=== PATIENT | female | born 1945 | race Caucasian/White ===

== ENCOUNTER 2022-06-14 02:38 | Day surgery (SDC) | payer MEDICARE, SELFPAY ==
[2022-06-04 10:10] VITALS: BMI 25.8
--- NOTE | 2022-06-04 10:15 | PC.NURSE ---
Report to the Outpatient Waiting Room, entrance under the green pavilion located off [facility], at time 0730 on date 06/11/22. Planned Procedure Time: 0930. Time changes happen often and if your time is changed the preop area will call you the afternoon before. - You and your visitor will be asked to self-screen and do not enter if you have any COVID symptoms. - Only one visitor is requested with a max of two and NO children visitors are allowed at this time. - The patient visitor may be requested to leave or wait in car when not with patient due to distancing restrictions. - A mask is optional within the hospital. Patients may have clear liquids (water, carbonated beverages, clear teas, apple juice) until 3 hours prior to surgery with a maximum of 20 ounces. - No food from midnight until time of surgery Take the following medications with a SIP of water the morning of surgery: TYLENOL IF NEEDED Medications to discontinue per physician: VITAMINS Date to take last dose: 06/07/22 Please no make-up, nail german, hairspray, perfume, deodorant, or body powder the day of surgery. No jewelry (including any body piercings) or valuables the day of surgery, leave them at home. Please take a shower or bath the night before, or the morning of, surgery with an antibacterial soap. Wear comfortable, loose fitting clothing. - Jewelry must be removed prior to entering the operating room. Rings and piercings that are not removed may be cut off. - The hospital will not accept responsibility for valuables. - Please leave all valuables, including medications, at home the day of surgery. If you are going home after surgery, a licensed city route driver must drive you home. - NO public transportation without another adult if you receive anesthesia. - We recommend that an adult stay with you for 24 hours following discharge. - We also recommend that you do not drive, make important decision, drink alcoholic beverages, or take any drugs that were not prescribed by your health care provider for at least 24 hours after your discharge time. Follow any additional instructions given to you from your surgeon. If you or anyone in your household have experienced Covid symptoms in the past week, please notify your surgeon or the nurse liaison at the phone number below for possible testing. Telephone instructions given to PT - MICKY BARCENAS and asked if any additional questions and then verbalized understanding. Patient advised to call surgeon office or pre surgery nurse liaison [phone] if any additional questions.
--- NOTE | 2022-06-11 11:27 | PC.NURSE ---
Report to the Outpatient Waiting Room, entrance under the green pavilion located off [facility], at time _1215 on date __06/14/22 . Planned Procedure Time: _1415 . Time changes happen often and if your time is changed the preop area will call you the afternoon before. - You and your visitor will be asked to self-screen and do not enter if you have any COVID symptoms. - Only one visitor is requested with a max of two and NO children visitors are allowed at this time. - The patient visitor may be requested to leave or wait in car when not with patient due to distancing restrictions. - A mask is optional within the hospital at this time. Patients may have clear liquids (water, carbonated beverages, clear teas, apple juice) until 3 hours prior to surgery with a maximum of 20 ounces. - No food from midnight until time of surgery - Infants may have breast milk until 4 hours before surgery, infant formula 6 hours prior to surgery. - Children will be allowed to drink immediately following surgery. If applicable, please bring a bottle or sippy cup to assist with drinking. Juice, water, soda, and popsicles are readily available. For infants on formula, please bring formula the day of surgery. Pacifiers are allowed. Take the following medications with a SIP of water the morning of surgery: _TYLENOL IF NEEDED DO NOT STOP ANY OF YOUR OTHER PRESCRIPTION MEDICATIONS PRIOR TO SURGERY ?EXCEPT THE FOLLOWING Medications to discontinue per physician ___ALL VITAMINS AND SUPPLEMENTS 3 DAYS PRE OP Date to take last dose___PT STATES LAST DOSE WILL BE 06/07/22 Please no make-up, nail jordanian, hairspray, perfume, deodorant, or body powder the day of surgery. No jewelry (including any body piercings) or valuables the day of surgery, leave them at home. Please take a shower or bath the night before, or the morning of, surgery with an antibacterial soap. Wear comfortable, loose fitting clothing. Children are encouraged to wear pajamas. - Jewelry must be removed prior to entering the operating room. Rings and piercings that are not removed may be cut off. - The hospital will not accept responsibility for valuables. - Please leave all valuables, including medications, at home the day of surgery. If you are going home after surgery, a licensed regional intermodal truck driver must drive you home. - NO public transportation without another adult if you receive anesthesia. - We recommend that an adult stay with you for 24 hours following discharge. - We also recommend that you do not drive, make important decision, drink alcoholic beverages, or take any drugs that were not prescribed by your health care provider for at least 24 hours after your discharge time. For Pediatric surgeries, we recommend two adults accompany the child home. Follow any additional instructions given to you from your surgeon. If you or anyone in your household have experienced Covid symptoms in the past week, please notify your surgeon or the nurse liaison at the phone number below for possible testing. Telephone instructions given to __PATIENT and asked if any additional questions and then verbalized understanding. Patient advised to call surgeon office or pre surgery nurse liaison [phone] if any additional questions.
--- NOTE | 2022-06-11 11:29 | PC.NURSE ---
PT STATES NO CHANGE IN HEALTH HX SINCE LAST INTERVIEW ON 06/04/22
--- NOTE | 2022-06-13 12:59 | PM.IMHP ---
H&P: HPI History of Present Illness Date/Time: 06/13/22 12:59 Chief Complaint: Overactive bladder Narrative: She has a long history of overactive bladder. She now receives Botox injections. She has InterStim device in place. She would like it removed due to discomfort Review of Systems Review of Systems: All systems reviewed & are unremarkable except as noted in HPI and below PMFSH Social History Social History Smoking status: Former smoker Tobacco type: cigarettes Smoking end date: 05/16/87 Additional smoking assessment comments: FORMER SOCIAL SMOKER Alcohol intake: current Drinks per week: 3 Substance use: never Substance use type: does not use Living arrangements: with family Spiritual care concerns: No Meds Home Medications and Allergies Home Medications Medication Instructions Recorded Confirmed Type acetaminophen 325 mg tablet 650 mg PO DAILY 06/04/22 06/11/22 History (Tylenol) cholecalciferol (vitamin D3) 125 125 mcg PO DAILY 06/04/22 06/11/22 History mcg (5,000 unit) tablet (Vitamin D3) diphenhydramine 25 1 tablet PO HS 06/04/22 06/11/22 History mg-acetaminophen 500 mg tablet (Tylenol PM Extra Strength) mecobalamin (vitamin B12) 1,000 1,000 mcg PO DAILY 06/04/22 06/11/22 History mcg chewable tablet (B12 Active) vitamin A-vitamin C-vit E-min 1 tablet PO DAILY 06/04/22 06/11/22 History tablet Allergies Allergy/AdvReac Type Severity Reaction Status Date / Time No Known Allergies Allergy Unknown Verified 06/11/22 11:25 Exam Narrative: No acute distress Normal breathing Alert orient x3 Assessment and Plan Assessment and plan (1) Urge incontinence: Code(s): N39.41 - Urge incontinence Status: Acute (2) Other complications due to genitourinary device, implant, and graft: Code(s): T83.89XA - Other specified complication of genitourinary prosthetic devices, implants and grafts, initial encounter Status: Acute Plan Will move her InterStim device due to discomfort. She has well-controlled Botox. She understands risks of bleeding, infection, wound related complications, incomplete device removal. She agrees to proceed
--- NOTE | ~2022-06-14 | XR_ITS ---
EXAMINATION: XR fluoroscopy no charge DATE: 06/14/2022 14:25 DIRECTOR DATABASE INDICATION: REMOVAL OF NEUROSTIMULATOR IMPLANT . TECHNIQUE: 1 fluoroscopic image of the pelvis were obtained during removal of neurostimulator implant performed by the surgeon. I was not present in the operating room. Fluoroscopy exposure time was 8.7 seconds. Air Kerma 5.96 mGy. DAP [id number] mGym2. COMPARISON: 03/03/2017 FINDINGS: Stimulator lead traversing from right to left (patient prone), extending through in a left sacral mike ral foramen. The tip of a surgical incision and projects over the midportion of the lead. IMPRESSION: Fluoroscopic documentation of removal of neurostimulator implant. Please refer to the operative note for complete procedural details . Reviewed, dictated and finalized at location K. CTOR DATABASE
--- NOTE | 2022-06-14 07:13 | WPDHPUPDATE1 ---
History and Physical Update Update Date/Time: 06/14/22 07:13 History and Physical has been reviewed, including an updated exam of the patient. There are NO changes in the patient's condition. Risks, benefits, and alternatives have been discussed and questions answered. Patient agrees to proceed with procedure.
[2022-06-14 12:00] VITALS: BP 130/79; PULSE 71; RESP 16; TEMP 36.9; O2SAT 98
[2022-06-14] MEDS: LACTATED RINGERS 1,000 ML 30 ML IV CONT ×2 (12:22→14:11)
--- NOTE | 2022-06-14 13:16 | P.PNAN_ITS ---
Anes - Initial Pre Proc Eval Procedure: Operation Date: 06/14/22 14:15 Proposed Procedures p Removal of Neurostimulator Implant - Balta Fulton MD Date/Time: 06/14/22 13:16 Surgeon: Balta Fulton MD Pre Op Diagnosis: back pain, overactive bladder Patient Data Age: 76 Gender: F Height: 1.7 m Weight: 77.5 kg Last Vital Signs Temp 98.4 F 06/14/22 12:00 Pulse 71 06/14/22 12:00 Resp 16 06/14/22 12:00 BP 130/79 06/14/22 12:00 Pulse Ox 98 06/14/22 12:00 O2 Del Method Room Air 06/14/22 12:00 Allergies Allergy/AdvReac Type Severity Reaction Status Date / Time No Known Allergies Allergy Unknown Verified 06/11/22 11:25 Home Medications Medication Instructions Recorded Confirmed Type acetaminophen 325 mg tablet 650 mg PO DAILY 06/04/22 06/14/22 History (Tylenol) cholecalciferol (vitamin D3) 125 125 mcg PO DAILY 06/04/22 06/14/22 History mcg (5,000 unit) tablet (Vitamin D3) diphenhydramine 25 1 tablet PO HS 06/04/22 06/14/22 History mg-acetaminophen 500 mg tablet (Tylenol PM Extra Strength) mecobalamin (vitamin B12) 1,000 1,000 mcg PO DAILY 06/04/22 06/14/22 History mcg chewable tablet (B12 Active) vitamin A-vitamin C-vit E-min 1 tablet PO DAILY 06/04/22 06/14/22 History tablet Patient hx anesthesia problems: none Family hx anesthesia problems: none Results Review: All pre-operative results and documents have been reviewed as part of the pre- operative evaluation. [facility] Social History Social History Smoking status: Former smoker Tobacco type: cigarettes Smoking end date: 05/16/87 Additional smoking assessment comments: FORMER SOC[employer] SMOKER Alcohol intake: current Drinks per week: 3 Substance use: never Substance use type: does not use Living arrangements: with family Spiritual care concerns: No Anes - Eval Final PreProcedure Day of Procedure 06/14/22 13:16 Patient weight: normal Heart: regular rate and rhythm Lungs: clear to auscultation Airway: Mallampati scale class II Neurological: alert and oriented Last oral intake: >/= 8 hours ASA classification: II Emergent: no Anesthetic plan: proceed Anesthesia type and monitoring: general LMA and standard monitoring Results Review: All pre-operative results and documents have been reviewed as part of the pre-operative evaluation. Informed Consent: The patient's anesthetic plan and its attendant risks and benefits were discussed with the patient/family/POA. Questions were solicited and answers provided to the satisfaction of the patient/family/POA.
[2022-06-14] MEDS: ceFAZolin 2 GM/D5W 50 ML 2 GM/50 ML BAG IVPB (14:09)
[2022-06-14] MEDS: BUPIVACAINE/EPINEPHRINE 0.5% 30 ML VIAL 10 ML INFILTRATE (14:26)
--- NOTE | 2022-06-14 14:54 | W.PM.PROC2 ---
Procedure Note - Detailed Date of Procedure 06/14/22 Pre-op Diagnosis Urge incontinence Complications urologic device Post-op Diagnosis Same Procedure Performed Removal sacral lead Removal of implantable pulse generator Surgeon Balta Fulton MD Anesthesia MAC Indications This is a woman InterStim device in place. She liked the device explanted. She understands risks of bleeding, infection, wound complications, incomplete device removed she also understands it may not resolve any back pain she has Findings Uncomplicated device removed Description of Procedure She was correctly identified. Informed consent obtained. She from the operating room. She was given MAC anesthesia. She was placed in prone position. Lower back and buttock prepped and draped in a sterile fashion. A time-out performed. I anesthetized the skin. I incised the skin. I explanted the pulse generator. I removed the capsule around the pulse generator. I then identified my lead under fluoroscopy. I anesthetized skin. I incised the skin. I located the sacral lead. I removed it in its entirety. I irrigated out the wounds. I assured hemostasis. I closed subcutaneous tissue with 2-0 Vicryl. Skin with 4-0 Vicryl. Glue was applied. She was awakened transferred to PACU in stable condition. Estimated Blood Loss 5 Complications No immediate complications Condition Stable Disposition PACU
[2022-06-14 14:55] VITALS: BP 123/56; PULSE 65; RESP 12; O2SAT 98
[2022-06-14 15:25] VITALS: BP 116/58; PULSE 61; O2SAT 99
[2022-06-14 15:55] VITALS: BP 118/74; PULSE 71
== END 2022-06-14 16:15 | disposition home or self-care (01) ==
PROVIDERS: PCP Family Medicine Sports Medicine; Visit Provider Urology
PROC: (CPT 64585; principal; 2022-06-14 14:15)
DX: T85.840A Pain due to nervous system prosthetic devices, implants and grafts, initial encounter (principal); Y83.8 Other surgical procedures as the cause of abnormal reaction of the patient, or of later complication, without mention of misadventure at the time of the procedure; N32.81 Overactive bladder; N39.41 Urge incontinence; Z87.891 Personal history of nicotine dependence
CPT/HCPCS: 64585; 64595; 99199; J0690; J2250; J2405; J2704; J3010; J7120